=== PATIENT | female | born 2005 | race African-American/Black ===

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

== ENCOUNTER 2024-02-22 08:52 | Emergency (ER) | payer OTHER, SELFPAY ==
[2024-02-22] MEDS ORDERED: Ibuprofen 200 MG TAB ONE (09:30)
== END 2024-02-22 09:45 | disposition home or self-care (01) ==
LOC: CSHERS 08:52
DX: B30.9 Viral conjunctivitis, unspecified (principal)
CPT/HCPCS: 99283

== ENCOUNTER 2024-03-10 19:08 | Emergency (ER) | payer SELFPAY | END 2024-03-10 20:48 | disposition home or self-care (01) | LOC: CSHERS 19:08 | DX: H10.9 Unspecified conjunctivitis (principal) | CPT/HCPCS: 99283 ==

== ENCOUNTER 2024-03-15 17:36 | Emergency (ER) | payer SELFPAY ==
[2024-03-15] MEDS ORDERED: diphenhydrAMINE 25 MG CAP ONE (18:34)
[2024-03-15] MEDS ORDERED: Famotidine 20 MG TAB ONE (18:35)
[2024-03-15] MEDS ORDERED: predniSONE 20 MG TAB ONE (18:37)
== END 2024-03-15 20:31 | disposition home or self-care (01) ==
LOC: CSHERS 17:36
DX: L29.9 Pruritus, unspecified (principal); M79.89 Other specified soft tissue disorders
CPT/HCPCS: 99283; J7512

== ENCOUNTER 2024-12-12 20:23 | Emergency (ER) | payer SELFPAY | END 2024-12-12 22:59 | disposition home or self-care (01) | LOC: CSHERS 20:23 | DX: H61.23 Impacted cerumen, bilateral (principal) | CPT/HCPCS: 69209; 99282 ==